=== PATIENT | female | born 1980 | race Caucasian/White ===

== ENCOUNTER 2018-05-22 07:00 | Outpatient (RCR) | payer SELFPAY ==
--- NOTE | 2018-04-03 08:26 | HP.PTEVAL_ITS ---
Patient's Visit Information MAXIMO DEAN is a 37 year old F referred to Physical Therapy by Ron Leyva MD with a diagnosis of BPPV, Lumbago with R LE weakness. Date of Evaluation: 04/03/18 Physical Therapist: Tito Armenta, TERESAT, OC - Visit Plan Frequency: 2x /Week Duration: 4-6 Weeks Plan: neurocom balance assessment then Ex to include balance, VOR, and LB ROM ext bias and core strength. Pt to decide between 2x/week and HEP with intermittent follow ups. Monitor HEP current of PPU and VOR and how they are effecting her. - Subjective Subjective: Dr. Leyva sent for R LE weakness and tingling. Has been there for a month insidiously. Vision and balance has felt off for a year or so. R LE weakness started a year ago. LBP started this last spring in January. R arm wasn 't functioning properly either. Gets tingling in both feet, legs and lips and tongue intermittently randomly. Feels worse when not moving. He is still investigating why. Did x-rays and will have muscle and nerve tests in May. Had sinus infection last spring. Is not dizzy but loopy sometimes randomly. Bumps into things but has not fallen. No spinning. LBP on a daily basis to 2/ 10. Working makes back worse. Works doing whatever is needed and was unable in February but has gotten a little better. Sleep is OK. Basic ADLs are OK. - Pain LBP Pain Intensity (Out of 10): 2 Pain Intensity Range: 0, 3 - Objective Walks into PT and transfers I, steps reciprocal without rail. LB AROM ext min deficits and slight R discomfort, SB and flexion are full and painfree. UE and LE AROM WFL, reflexes 1/3 patella adn achilles and bi and tri. Sensation LE WNL to gross light touch. Strength LE 4+/5 hips and knees and ankles. No myotomal abnormalities. UE Strength 4/5. VOR walking is challenging as is ec on foam. Oculomotor: normal and asymptomatic. pursuit and saccades are normal today, VOR is easy and asymptomatic but fatigues after 45 sec. No nystagmus today with head shake or gaze. Head thrust appears slightly + B. Convergence is normal. - skew eye deviation. - B hallpike veronica, - roll test. - Balance Scores Functional Gait Assessment Score: 27 % Disability: 10.0000 CATSIB Score (Max score 120 seconds): 78 - Goals Goal 1:: I approp HEP to help minimize future problems. Goal Time Frame: 4-6 Weeks Goal 2:: Full LB ROM without pain and 75% decreased LBP at 1/10 at worst. Goal Time Frame: 4-6 Weeks Goal 3:: 30/30 FGA Goal Time Frame: 4-6 Weeks - Rehabilitation Potential Physical Therapy Diagnosis: Multiple neurologic type symptoms, limited LB ROM. Rehabilitation Potential: Questionable - Anticipated Interventions Patient/Client Instruction: Educate patient on: Condition, Plan of Care For the Purpose of:: To decrease pain, To improve balance Therapeutic Exercise to Include: Strength training, Balance training, Passive ROM, Active ROM Comment: Neurocom balance assessment For the Purpose of:: To decrease pain, To improve muscle performance and motor function, To improve ability of physical actions for home/community/work/leisure , To improve gait and locomotor functions, To improve balance Thank you for the opportunity to evaluate your patient. For Medicare and Medicare HMO plans, please review the plan of care and approve it. It will need to be FAXED BACK to us at [phone] for Medicare purposes. Please let me know if there are questions or concerns regarding this plan of care. Physician Signature: Date:
--- NOTE | 2018-04-13 07:48 | HP.PTCOM ---
PT Communication Note 04/13/[address] Ron Leyva MD , Thank you for the referral of Lucita to [facility] for balance assessment. I have enclosed a copy of the results for your review. In summation, she scored well on the Motor Control and Adaptation Tests. She scored low on the visual and somatosensory portions of the Sensory Organization test. She score low particularly in the forward, right and left directions of reaction time and excursion on the Limits of Stability Test. With these results in mind and at her request, I plan to come up with an home exercise program that addresses these issues as well as her back pain. We will f/u a month after initiating this HEP to monitor and progress. If there are questions regarding her balance or therapy, please feel free to call me. Thank you. Sincerely, Tito Armenta DPT, OC Contact Information
--- NOTE | 2018-04-13 07:51 | HP.PTCOM_ITS ---
PT Communication Note 04/13/[address] Ron Leyva MD , Thank you for the referral of Lucita to [facility] for balance assessment. I have enclosed a copy of the results for your review. In summation, she scored well on the Motor Control and Adaptation Tests. She scored low on the visual and somatosensory portions of the Sensory Organization test. She score low particularly in the forward, right and left directions of reaction time and excursion on the Limits of Stability Test. With these results in mind and at her request, I plan to come up with an home exercise program that addresses these issues as well as her back pain. We will f/u a month after initiating this HEP to monitor and progress. If there are questions regarding her balance or therapy, please feel free to call me. Thank you. Sincerely, Tito Armenta DPT, OC Contact Information
--- NOTE | 2018-05-22 07:48 | HP.PTDCSUM ---
HP - PT D/C Summary It has been my pleasure to treat MAXIMO DEAN under orders from Ron Leyva MD, for the diagnosis of BPPV, Lumbago with R LE weakness for a total of 5 visit(s). Discharge Date: 05/22/18 Please see the following information for a summary of their discharge status. - Subjective Subjective: Still feels wavy at times for no apparent reaason, worse when tired, no falls, balance seems better. No back pain lately, just an occasional reminder. Bending and lifting to move adn did well. Has good days and bad days with balance, never feels dizzy and always feels good lying down. - Pain LBP Pain Intensity (Out of 10): 0 - Overall Improvement % Improvement: 40 - Objective Objective/Function: - B hallpike and - roll test again today. FGA is +2, LB AROM WFL and painfree. vVOR walking safe but challenging. SOT is actually 10 points worse overall today. LOS shows some slight improvements that can be expected with her ex. OVERALL BACK IS BETTER AND BALANCE MAY BE SLIGHTLY BETTER BUT STILL TESTING WELL BELOW NORMAL IN ALL SENSORY BALANCE SYSTEMS AND REACTION TIME. - Goals Goal 1:: I approp HEP to help minimize future problems. Goal Progress: Goal Met Goal 2:: Full LB ROM without pain and 75% decreased LBP at 1/10 at worst. Goal Progress: Goal Met Goal 3:: 30 FGA Goal Progress: Progressing - Plan Plan: D/C, PT TO DOCTOR NEXT WEEK TO GET RESULTS OF TESTING. - D/C Information Discharge Comments: Pt has unusual presentation with all sensory systems being effected on the Sensory organization Test. Slow reaction time in all directions on the Limits of Stability Test. She feels woozy intermittently and without reason but has no positional postiive tests. Has difficult time with VOR. She is working on HEp for LB and balance and will f/.u with doctor next week for test results. If there are questions or concerns regarding this patient's physical therapy, please feel free to call me at [phone]. Thank you for the referral of this patient. Sincerely, Tito Armenta, DPT, OC
== END 2018-05-22 08:53 | disposition home or self-care (01) ==
LOC: PT 07:00
PROVIDERS: Visit Provider Psychiatry & Neurology Neurology
DX: H81.11 Benign paroxysmal vertigo, right ear (principal); M54.5 Low back pain; R29.898 Other symptoms and signs involving the musculoskeletal system; R20.0 Anesthesia of skin
CPT/HCPCS: 97110; 97163; 97530; 97750